=== PATIENT | female | born 1970 | race Caucasian/White ===

== ENCOUNTER → 2017-11-29 07:46 | Outpatient (CLI) | payer BC, SELFPAY ==
--- NOTE | 2017-11-29 | DI.MG.S_ITS ---
BILATERAL DIGITAL SCREENING MAMMOGRAM 3D/2D WITH CAD: 11/29/2017 CLINICAL: Routine screening. Family history of breast cancer. Comparison is made to exam dated: 12/04/2007 [facility]. The tissue of both breasts is heterogeneously dense. This may lower the sensitivity of mammography. Current study was also evaluated with a Computer Aided Detection (CAD) system. No significant masses, calcifications, or other findings are seen in either breast. There has been no significant interval change. IMPRESSION: NEGATIVE There is no mammographic evidence of malignancy. A 1 year screening mammogram is recommended. This exam was interpreted at Station ID: [id number]. NOTE: For mammograms, a report in lay terms will be sent to the patient. Approximately 15% of breast malignancies will not be visualized mammographically. In the management of a palpable breast mass, a negative mammogram must not discourage biopsy of a clinically suspicious lesion. Electronically Signed By: Heri escobar/levar:11/29/2017 13:43:22 letter sent: Normal Exam ACR BI-RADS Category 1: Negative 3341F
== END ==
PROVIDERS: Family Provider Family Medicine; PCP Family Medicine; Visit Provider Family Medicine
DX: Z12.31 Encounter for screening mammogram for malignant neoplasm of breast (principal); Z80.3 Family history of malignant neoplasm of breast
CPT/HCPCS: 77063; 77067

== ENCOUNTER → 2020-01-14 14:15 | Outpatient (CLI) | payer BC, SELFPAY ==
--- NOTE | 2020-01-14 14:26 | DI.MG.S_ITS ---
Patient Name: YVONNE EDWARDS date: 1970 Sex: F Attending Physician: Joshua Indications: Date: 01/14/2020 14:30 At the request of: ARTEM WHEATLEY Procedure: MM screening mammo BI BILATERAL DIGITAL SCREENING MAMMOGRAM 3D/2D WITH CAD: 01/14/2020 CLINICAL: Routine screening. Family history of breast cancer. Comparison is made to exam dated: 11/29/2017 [facility]. The tissue of both breasts is heterogeneously dense. This may lower the sensitivity of mammography. Current study was also evaluated with a Computer Aided Detection (CAD) system. There is an asymmetry in the right breast at 8 o'clock posterior depth. This is more prominent. There is an asymmetry in the left breast at 12 o'clock posterior depth. This is more prominent. No other significant masses or calcifications are seen in either breast. IMPRESSION: INCOMPLETE: NEEDS ADDITIONAL IMAGING EVALUATION The asymmetry in the right breast at 8 o'clock posterior depth is indeterminate. Additional views with possible ultrasound are recommended. The asymmetry in the left breast at 12 o'clock posterior depth is indeterminate. Additional views with possible ultrasound are recommended. This exam was interpreted at Station ID: [id number]. NOTE: For mammograms, a report in lay terms will be sent to the patient. Approximately 15% of breast malignancies will not be visualized mammographically. In the management of a palpable breast mass, a negative mammogram must not discourage biopsy of a clinically suspicious lesion. Electronically Signed By: Carri andujar/levar:01/14/2020 17:14:46 Continued Report - Page 2 of 2 Patient Name: YVONNE EDWARDS date: 1970 Sex: F Attending Physician: Joshua Indications: Date: 01/14/2020 14:30 At the request of: ARTEM WHEATLEY Procedure: MM screening mammo BI letter sent: Additional Imaging Needed ACR BI-RADS Category 0: Incomplete 3340F
== END ==
PROVIDERS: Family Provider Family Medicine; PCP Student in an Organized Health Care Education/Training Program; Referring Provider Student in an Organized Health Care Education/Training Program; Visit Provider Student in an Organized Health Care Education/Training Program
DX: Z12.31 Encounter for screening mammogram for malignant neoplasm of breast (principal); Z80.3 Family history of malignant neoplasm of breast
CPT/HCPCS: 77063; 77067

== ENCOUNTER → 2020-02-09 14:59 | Outpatient (CLI) | payer BC, SELFPAY ==
--- NOTE | 2020-02-09 | DI.US.S_ITS ---
LIMITED ULTRASOUND OF LEFT BREAST: 02/09/2020 CLINICAL: Patient returns today to evaluate a density in the left breast. Comparison is made to exams dated: 02/09/2020 mammogram, 01/14/2020 mammogram, 11/29/2017 mammogram, and 12/04/2007 mammogram - [facility]. Real-time ultrasound of the left breast 12 o'clock region was performed. Dugan scale images of the real-time examination were reviewed. No significant abnormalities were seen sonographically in the left breast in the region of possible focal asymmetry. IMPRESSION: NEGATIVE There is no sonographic evidence of malignancy. No ultrasound correlate for possible focal asymmetry. A 1 year screening mammogram is recommended. Exam findings were conveyed to the patient. This exam was interpreted at Station ID: [id number]. Electronically Signed By: Tres Pennington M.D. slc/:02/09/2020 18:02:44 letter sent: Normal Exam Ultrasound BI-RADS: 1 Negative
--- NOTE | 2020-02-09 | DI.US.S_ITS ---
LIMITED ULTRASOUND OF RIGHT BREAST: 02/09/2020 CLINICAL: Patient returns today to evaluate a density in the right breast. Comparison is made to exams dated: 02/09/2020 mammogram, 01/14/2020 mammogram, 11/29/2017 mammogram, and 12/04/2007 mammogram - [facility]. Color flow and real-time ultrasound of the right breast 8-9 o'clock region were performed. Dugan scale images of the real-time examination were reviewed. There is a benign 0.5 cm oval simple cyst in the right breast at 8 o'clock posterior depth. This oval simple cyst is anechoic with a well-defined boundary and posterior acoustic enhancement. This correlates as an incidental finding. Color flow imaging demonstrates that there is no vascularity present. IMPRESSION: BENIGN There is no sonographic evidence of malignancy. No mass in the region of possible focal asymmetry. Incidental 0.5 cm simple cyst in the right breast is consistent is benign. A 1 year screening mammogram is recommended. Exam findings were conveyed to the patient. This exam was interpreted at Station ID: [id number]. Electronically Signed By: Tres Pennington M.D. [facility] [place]/:02/09/2020 18:00:39 letter sent: Normal Exam Ultrasound BI-RADS: 2 Benign
--- NOTE | 2020-02-09 | DI.MG.S_ITS ---
BILATERAL DIGITAL DIAGNOSTIC MAMMOGRAM 3D/2D WITH ADDITIONAL VIEWS: 02/09/2020 CLINICAL: Additional evaluation requested from prior study. Comparison is made to exams dated: 01/14/2020 mammogram, 11/29/2017 mammogram, and 12/04/2007 mammogram - [facility]. The tissue of both breasts is heterogeneously dense. This may lower the sensitivity of mammography. There is an irregular focal asymmetry in the right breast at 8 o'clock posterior depth. This is not seen in additional views. There is interspersed fat. There is an irregular focal asymmetry in the left breast at 12 o'clock posterior depth. This is not seen in additional views. There is interspersed fat. No other significant masses or calcifications are seen in either breast. IMPRESSION: INCOMPLETE: NEEDS ADDITIONAL IMAGING EVALUATION 1) Focal asymmetry in the right breast at 8 o'clock posterior depth resembles overlapping fibroglandular tissue and is indeterminate. 2) Focal asymmetry in the left breast at 12 o'clock posterior depth resembles overlapping fibroglandular tissue and is indeterminate. A targeted ultrasound is recommended and will immediately follow. This exam was interpreted at Station ID: [id number]. NOTE: For mammograms, a report in lay terms will be sent to the patient. Approximately 15% of breast malignancies will not be visualized mammographically. In the management of a palpable breast mass, a negative mammogram must not discourage biopsy of a clinically suspicious lesion. Electronically Signed By: Tres Pennington M.D. slc/:02/09/2020 15:39:01 ACR BI-RADS Category 0: Incomplete 3340F
== END ==
PROVIDERS: Family Provider Family Medicine; PCP Student in an Organized Health Care Education/Training Program; Referring Provider Student in an Organized Health Care Education/Training Program; Visit Provider Student in an Organized Health Care Education/Training Program
DX: R92.8 Other abnormal and inconclusive findings on diagnostic imaging of breast (principal); N60.01 Solitary cyst of right breast; N64.89 Other specified disorders of breast
CPT/HCPCS: 76642; 77066; G0279

== ENCOUNTER → 2021-02-09 16:31 | Outpatient (CLI) | payer OTHER, SELFPAY ==
--- NOTE | 2021-02-09 16:35 | DI.MG.S_ITS ---
BILATERAL DIGITAL SCREENING MAMMOGRAM 3D/2D WITH CAD: 02/09/2021 CLINICAL: Routine screening. Family history of breast cancer. Comparison is made to exams dated: 02/09/2020 mammogram, 01/14/2020 mammogram, and 11/29/2017 mammogram - [facility]. There are scattered fibroglandular elements in both breasts. Current study was also evaluated with a Computer Aided Detection (CAD) system. No significant masses, calcifications, or other findings are seen in either breast. There has been no significant interval change. IMPRESSION: NEGATIVE There is no mammographic evidence of malignancy. A 1 year screening mammogram is recommended. This exam was interpreted at Station ID: [id number]. NOTE: For mammograms, a report in lay terms will be sent to the patient. Approximately 15% of breast malignancies will not be visualized mammographically. In the management of a palpable breast mass, a negative mammogram must not discourage biopsy of a clinically suspicious lesion. Electronically Signed By: Davey trujillo/levar:02/10/2021 08:54:20 letter sent: Normal Exam ACR BI-RADS Category 1: Negative 3341F
== END ==
PROVIDERS: PCP Student in an Organized Health Care Education/Training Program; Referring Provider Student in an Organized Health Care Education/Training Program; Visit Provider Student in an Organized Health Care Education/Training Program
DX: Z12.31 Encounter for screening mammogram for malignant neoplasm of breast (principal); Z80.3 Family history of malignant neoplasm of breast
CPT/HCPCS: 77063; 77067

== ENCOUNTER → 2022-02-13 13:47 | Outpatient (CLI) | payer OTHER, SELFPAY ==
--- NOTE | 2022-02-13 13:49 | DI.MG.S_ITS ---
BILATERAL DIGITAL SCREENING MAMMOGRAM 3D/2D WITH CAD: 02/13/2022 CLINICAL: Routine screening. Family history of breast cancer. Comparison is made to exams dated: 02/09/2021 mammogram, 02/09/2020 ultrasound, 02/09/2020 mammogram, 01/14/2020 mammogram, and 12/04/2007 mammogram - [facility]. There are scattered areas of fibroglandular density in both breasts (category b / 25%-50% glandular tissue). Current study was also evaluated with a Computer Aided Detection (CAD) system. There is a benign focal asymmetry in the left breast. No significant masses, calcifications, or other findings are seen in either breast. There has been no significant interval change. IMPRESSION: BENIGN There is no mammographic evidence of malignancy. A 1 year screening mammogram is recommended. Based on the Tyrer Cuzick model (a risk assessment model) the patient's lifetime risk is 14.1% and her 10 year risk is 3.3%. According to the ACR, ACS, and NCCN guidelines, an annual breast MRI exam along with mammogram is recommended if the patient's lifetime risk is 20% or greater. This exam was interpreted at Station ID: [id number]. NOTE: For mammograms, a report in lay terms will be sent to the patient. Approximately 15% of breast malignancies will not be visualized mammographically. In the management of a palpable breast mass, a negative mammogram must not discourage biopsy of a clinically suspicious lesion. Electronically Signed By: Moses deng/levar:02/14/2022 07:39:16 letter sent: Normal Exam ACR BI-RADS Category 2: Benign Finding(s) 3342F
== END ==
PROVIDERS: PCP Internal Medicine; Referring Provider Internal Medicine; Visit Provider Internal Medicine
DX: Z12.31 Encounter for screening mammogram for malignant neoplasm of breast (principal); Z80.3 Family history of malignant neoplasm of breast
CPT/HCPCS: 77063; 77067

== ENCOUNTER → 2023-02-14 12:44 | Outpatient (CLI) | payer OTHER, SELFPAY ==
--- NOTE | 2023-02-14 | DI.MG.S_ITS ---
BILATERAL DIGITAL SCREENING MAMMOGRAM 3D/2D WITH CAD: 02/14/2023 CLINICAL: Routine screening. Family history of breast cancer. Comparison is made to exams dated: 02/13/2022 mammogram, 02/09/2021 mammogram, and 01/14/2020 mammogram - [facility]. There are scattered areas of fibroglandular density in both breasts (category b / 25%-50% glandular tissue). Current study was also evaluated with a Computer Aided Detection (CAD) system. There is a stable benign focal asymmetry in the left breast. No significant masses, calcifications, or other findings are seen in either breast. There has been no significant interval change. IMPRESSION: BENIGN There is no mammographic evidence of malignancy. A 1 year screening mammogram is recommended. Based on the Tyrer Cuzick model (a risk assessment model) the patient's lifetime risk is 14.1% and her 10 year risk is 3.4%. According to the ACR, ACS, and NCCN guidelines, an annual breast MRI exam along with mammogram is recommended if the patient's lifetime risk is 20% or greater. This exam was interpreted at Station ID: [id number]. NOTE: For mammograms, a report in lay terms will be sent to the patient. Approximately 15% of breast malignancies will not be visualized mammographically. In the management of a palpable breast mass, a negative mammogram must not discourage biopsy of a clinically suspicious lesion. Electronically Signed By: Rai white/levar:02/14/2023 16:27:59 letter sent: Normal Exam ACR BI-RADS Category 2: Benign Finding(s) 3342F
== END ==
PROVIDERS: PCP Internal Medicine; Referring Provider Internal Medicine; Visit Provider Internal Medicine
DX: Z12.31 Encounter for screening mammogram for malignant neoplasm of breast (principal); Z80.3 Family history of malignant neoplasm of breast
CPT/HCPCS: 77063; 77067

== ENCOUNTER 2023-05-23 08:04 | Day surgery (SDC) | payer OTHER, SELFPAY ==
--- NOTE | 2023-05-23 | PATH_ITS ---
[facility] Accession Number: [id number] No. of containers..01 Tissue . 01 Material submitted: . colon - TRANSVERSE POLYP . 01 Diagnosis: Colon, transverse, polyp biopsy: - Benign polypoid colonic mucosa with benign lymphoid aggregate. - Negative for dysplasia. TXN 05/27/2023 1559 Local . 01 Electronically signed: . Abhijit Leung MD, Pathologist NPI- [id number] . 01 Gross description: . TRANSVERSE POLYP : Received in formalin is 1 fragment(s) of [place], soft tissue measuring 0.5 x 0.3 x 0.1 cm submitted entirely in 1 cassette(s) /AAY 05/25/2023 0649 Local . 01 Pathologist provided ICD-10: Z12.11 . 01 CPT . 101056 Specimen Comment: A courtesy copy of this report has been sent to [phone] Performed at: 01 [facility] [address] [place] [address], [place], [place] [id number] MD Jacky Mejia MD Phone: [phone]
--- NOTE | 2023-05-23 09:13 | P.HP_ITS ---
History of Present Illness History of Present Illness Date Patient Seen: 05/23/23 Time Patient Seen: 09:13 Chief complaint: Colonoscopy Narrative: Ada is a 52 year old woman who comes in for her first colonoscopy. [facility] Social History Smoking Status: Never smoker alcohol intake: never Meds Home Medications and Allergies Home Medications Medication Instructions Recorded Confirmed Type No Known Home Medications 05/23/23 05/23/23 History Allergies Allergy/AdvReac Type Severity Reaction Status Date / Time No Known Drug Allergies Allergy Verified 05/23/23 09:18 Exam Const General: healthy appearing and No acute distress Assessment & Plan Assessment and plan (1) Colon cancer screening: Status: Acute Plan We reviewed the risks and benefits of colonoscopy for colon cancer screening and she would like to proceed.
[2023-05-23 09:30] VITALS: BP 129/84; PULSE 83; RESP 14; TEMP 36.4; O2SAT 98
[2023-05-23] MEDS: LACTATED RINGERS 1,000 ML 42 ML IV (09:33)
--- NOTE | 2023-05-23 10:02 | PM.OP.COLON ---
Operative Date/Time/Diagnoses Date of procedure: 05/23/23 Time of procedure: 10:02 Pre-op diagnosis: Colon cancer screening Post-op diagnosis: same Procedure & Clinicians Study performed: Colonoscopy Same procedure as scheduled: Yes Surgeon: Paul Levi Procedure Notes Procedure in detail: Surgeon: Paul Levi MD Anesthesia: Cami De La Cruz CRNA Procedure: The patient was brought to the endoscopy suite, placed in left lateral decubitus position. The patient was connected to monitoring devices. A time-out was performed. Sedation was administered. Once the patient was adequately sedated, a digital rectal exam was performed and was normal. The scope was then inserted and advanced to the cecum where the appendiceal orifice was identified and photographed. The scope was then slowly withdrawn over greater than 6 minutes. The mucosa was thoroughly inspected. There was a 3 mm polyp in the distal transverse colon removed with the Jumbo forceps. The scope was retroflexed in the rectum. No other abnormalities were seen. The scope was straightened and removed. The patient was awakened and brought to recovery. Scope withdrawal time: 7 minutes Sedation time: 15 minutes EBL: 2 mL Findings: 3 mm polyp in the transverse colon Post-procedure Recommendations: Colonoscopy in 10 years Disposition: PACU
[2023-05-23 10:05] VITALS: BP 108/75; PULSE 71; RESP 11; TEMP 36.4; O2SAT 100
[2023-05-23 10:13] VITALS: BP 122/85; PULSE 80; RESP 11; O2SAT 99
[2023-05-23 10:16] VITALS: BP 135/96; PULSE 73; RESP 13; TEMP 36.4; O2SAT 100
[2023-05-23 10:21] VITALS: BP 134/75; PULSE 71; RESP 14; O2SAT 99
== END 2023-05-23 10:31 | disposition home or self-care (01) ==
PROVIDERS: PCP Internal Medicine; Referring Provider Surgery; Visit Provider Surgery
PROC: 0DJD8ZZ Inspection of Lower Intestinal Tract, Via Natural or Artificial Opening Endoscopic (ICD-10-PCS; CPT 45378; principal; 2023-05-23 09:15)
DX: Z12.11 Encounter for screening for malignant neoplasm of colon (principal); K63.5 Polyp of colon
CPT/HCPCS: 45380; J2704

== ENCOUNTER → 2024-02-17 15:19 | Outpatient (CLI) | payer OTHER, SELFPAY ==
--- NOTE | 2024-02-17 | DI.MG.S_ITS ---
BILATERAL DIGITAL SCREENING MAMMOGRAM 3D/2D WITH CAD: 02/17/2024 CLINICAL: Routine screening. Family history of breast cancer. Comparison is made to exams dated: 02/14/2023 mammogram, 02/13/2022 mammogram, and 02/09/2021 mammogram - [facility]. There are scattered areas of fibroglandular density (category b / 25%-50% glandular tissue). Current study was also evaluated with a Computer Aided Detection (CAD) system. No significant masses, calcifications, or other findings are seen in either breast. There has been no significant interval change. IMPRESSION: NEGATIVE There is no mammographic evidence of malignancy. A 1 year screening mammogram is recommended. Based on the Tyrer Cuzick model (a risk assessment model) the patient's lifetime risk is 13.2% and her 10 year risk is 3.3%. According to the ACR, ACS, and NCCN guidelines, an annual breast MRI exam along with mammogram is recommended if the patient's lifetime risk is 20% or greater. This exam was interpreted at Station ID: [id number]. NOTE: For mammograms, a report in lay terms will be sent to the patient. Approximately 15% of breast malignancies will not be visualized mammographically. In the management of a palpable breast mass, a negative mammogram must not discourage biopsy of a clinically suspicious lesion. Electronically Signed By: Tres anderson/levar:02/18/2024 08:31:57 letter sent: Normal Exam ACR BI-RADS Category 1: Negative
== END ==
PROVIDERS: PCP Internal Medicine; Referring Provider Internal Medicine; Visit Provider Internal Medicine
DX: Z12.31 Encounter for screening mammogram for malignant neoplasm of breast (principal); Z80.3 Family history of malignant neoplasm of breast
CPT/HCPCS: 77063; 77067

== ENCOUNTER → 2024-10-25 13:05 | Outpatient (CLI) | payer OTHER, SELFPAY | PROVIDERS: PCP Internal Medicine; Visit Provider Nurse Practitioner Family | DX: L02.91 Cutaneous abscess, unspecified (principal) | CPT/HCPCS: 87070; 87075; 87077; 87186; 87205 ==

== ENCOUNTER → 2025-02-22 15:58 | Outpatient (CLI) | payer OTHER, SELFPAY ==
--- NOTE | 2025-02-22 16:00 | DI.MG.S_ITS ---
MM screening mammo BI: 02/22/2025. BI-RADS: 1 CLINICAL: 54-year old female for bilateral screening mammogram. Tyrer-Cuzick lifetime risk of 15.7%. No personal or first-degree family history of breast cancer. Current reported family history of breast cancer: maternal aunt, maternal aunt's daughter and second maternal aunt. PRIOR EXAMS 02/17/2024, 02/14/2023, 02/13/2022, 02/09/2021, MAMMOGRAPHY TECHNIQUE: 2D and 3D (tomosynthesis) digital mammographic views obtained, with additional images as needed for full coverage. Current study was also evaluated with a Computer Aided Detection (CAD) system. DENSITY B. There are scattered areas of fibroglandular density. MAMMOGRAPHY FINDINGS Bilateral: No suspicious mass, asymmetry, microcalcification, or other abnormality seen. IMPRESSION: * No evidence of malignancy. RECOMMENDATIONS Bilateral * Annual screening mammography. OVERALL ASSESSMENT CATEGORY BI-RADS-1: Negative. The [employer] recommends annual screening mammography beginning at age 40 for women with average risk of breast cancer. ELECTRONICALLY SIGNED: Juan Pablo Mccray M.D. on 02/23/2025 at 01:03:51 PM PT Interpreting Station ID: [id number]
== END ==
PROVIDERS: PCP Registered Nurse; Referring Provider Registered Nurse; Visit Provider Registered Nurse
DX: Z12.31 Encounter for screening mammogram for malignant neoplasm of breast (principal); Z80.3 Family history of malignant neoplasm of breast
CPT/HCPCS: 77063; 77067